=== PATIENT | male | born 2000 | race African-American/Black ===

== ENCOUNTER 2021-09-20 16:50 | Emergency (ER) | payer OTHER ==
[~2021-09-20] VITALS: Ht 182.9 cm; Wt 73.6 kg
[2021-09-20] MEDS ORDERED: CEPHALEXIN500 M1 PO (19:04)
[2021-09-20 19:08] VITALS: BP 140/83; PULSE 70; TEMP 97.7
== END 2021-09-20 19:08 | disposition home or self-care (01) ==
LOC: COL.ER 16:50
DX: S40.262A Insect bite (nonvenomous) of left shoulder, initial encounter (principal); F17.210 Nicotine dependence, cigarettes, uncomplicated; W57.XXXA Bitten or stung by nonvenomous insect and other nonvenomous arthropods, initial encounter